=== PATIENT | male | born 1995 | race Hispanic/Latino ===

== ENCOUNTER 2017-10-04 10:48 | Day surgery (SDC) | payer BC ==
[2017-10-03 16:26] VITALS: BMI 26.9
[2017-10-04] MEDS ORDERED: CEFAZOLIN/Water 2 GM/20 ML SYRINGE ONE (11:37)
[2017-10-04] MEDS ORDERED: Midazolam HCl 2 mg/2 ml Vial ONE ×2 (12:28→12:34)
[2017-10-04] MEDS ORDERED: Fentanyl 100 MCG/2 ML VIAL ONE (12:28)
[2017-10-04] MEDS ORDERED: Bupivacaine PF 0.5% 30 ML VIAL ONE (13:13)
[2017-10-04] MEDS ORDERED: Lidocaine 1% PF 5 ML VIAL ONE (15:10)
[2017-10-04] MEDS ORDERED: Dexamethasone 20 MG/5 ML VIAL ONE (15:10)
[2017-10-04] MEDS ORDERED: Ondansetron HCl/PF 4 MG/2 ML Vial ONE (15:10)
[2017-10-04] MEDS ORDERED: PROPOFOL 200 MG/20 ML VIAL ONE (15:10)
[2017-10-04] MEDS ORDERED: Ketorolac Tromethamine 30 MG/ML VIAL ONE (15:10)
--- NOTE | 2017-10-05 11:35 | OP ---
DATE OF SURGERY: 10/04/2017 PREOPERATIVE DIAGNOSIS: Right knee radial tear lateral meniscus and right knee anteromedial plica. POSTOPERATIVE DIAGNOSIS: Right knee radial tear lateral meniscus and right knee anteromedial plica. SURGICAL PROCEDURE: 1. Right knee examination under anesthesia. 2. Right knee diagnostic arthroscopy. 3. Right knee partial lateral meniscectomy. 4. Right knee arthroscopic excision of plica. ANESTHESIA: General. SURGEON: Wolfgang Simpson M.D. TOURNIQUET TIME: 25 minutes at 300 mmHg. COMPLICATIONS: None. DRAINS: None. SPECIMEN: None. OUTCOME: Satisfactory. INDICATIONS: The patient is a pleasant 22-year-old gentleman who is status post ACL reconstruction. He has done well following surgery, but over the last few months he has had some increased anteromed ial knee pain. A repeat MRI shows an intact ACL graft with no obvious plica, but his symptoms are ve ry consistent with catching of soft tissue over the anteromedial femoral condyle. With the ongoing s ymptoms, we have now decided to proceed with arthroscopy. Informed consent has been obtained. I bel ieve all questions answered. PROCEDURE IN DETAIL: The patient was brought to the operating room and a timeout performed followed by the induction of general anesthesia. The patient was next positioned supine on the OR table then a sterile prep and drape was performed of the right lower extremity. Next, the limb was exsanguinate d with Esmarch bandage and tourniquet inflated to 300 mmHg. An exam under anesthesia showed the knee was stable to Jennifer and drawer testing with a negative pivot shift and range of motion from full e xtension to 135 degrees flexion. Next, an anterolateral arthroscopic portal was created and arthrosc ope introduced in the suprapatellar pouch. Diagnostic arthroscopy then performed with the suprapatel lar pouch free of loose bodies. The patella and trochlear groove were found to have healthy-appearin g articular surfaces. There was an apparent anteromedial plica present with some mild thickening. M edial and lateral gutters were free of loose bodies. The camera was brought in the medial compartmen t, an anteromedial portal was created. Probing of the medial meniscus showed that was intact, the ar throscopic surface of the medial femoral condyle and medial tibial plateau were healthy. The camera was brought to the midline showing an intact ACL graft with synovialization over the graft as well as an intact PCL. The knee was then brought into a [id number]-[id number] position and this revealed healthy a ppearing articular surface of lateral femoral condyle and lateral tibial plateau with a small anterio r radial tear of lateral meniscus. Instrumenting through the anteromedial portal, a combination of r ight hand of 90 degree duckbill cutter and shaver was used to perform a partial anterior horn lateral meniscectomy, just debriding the tear back to the apex of the radial tear. Once performed and all m eniscal fragments removed from the knee. Attention was placed back at the suprapatellar pouch. Bernardo olson, using the anteromedial portal was a working portal. The plica was probed and found to be quite th ick and there was evidence of some synovitis off of the margin of the medial femoral condyle consiste nt with this rubbing. The shaver was then introduced and the plica was debrided. Final pictures wer e taken after the debridement of plica and then all instruments were removed from the knee. The two portals were closed with 4-0 nylon in horizontal mattress fashion and then a Xeroform gauze and Cruzito w rap dressing was applied to the knee. The patient tolerated the procedure well. Tourniquet was let down at the completion of dressing.
== END 2017-10-04 15:35 | disposition home or self-care (01) ==
LOC: SDC 10:48
PROVIDERS: ATTEND Orthopaedic Surgery
PROC: 0SBC4ZZ Excision of Right Knee Joint, Percutaneous Endoscopic Approach (ICD-10-PCS; principal; 2017-10-04)
DX: S83.281A Other tear of lateral meniscus, current injury, right knee, initial encounter (principal); M67.51 Plica syndrome, right knee; F17.200 Nicotine dependence, unspecified, uncomplicated; Z98.890 Other specified postprocedural states; Z87.81 Personal history of (healed) traumatic fracture
CPT/HCPCS: J1100; J1885; J2001; J2250; J2405; J2704; J3010; S0020